=== PATIENT | female | born 1965 | race Caucasian/White ===

== ENCOUNTER 2017-06-14 19:37 | Emergency (ER) | payer OTHER ==
[2017-06-14 19:44] VITALS: BP 140/78; BMI 32.5
--- NOTE | 2017-06-14 20:41 | RAD ---
HISTORY: Flu Study: PA and lateral views of the chest. Comparison: None. Findings: The cardiomediastinal silhouette is normal. No focal consolidations, pleural effusions or pneumothora x. Osseous structures demonstrate no acute abnormality. IMPRESSION: 1. No acute cardiopulmonary process. Reported By:
--- NOTE | 2017-06-14 20:53 | DR.GENAD ---
HPI - PCP Primary Care Physician: NFD - Complaint/Symptoms Chief Complaint Doctors Comments: Patient has been treated and followed by her physician and has given her steroids and albuterol for her cough. She admits to one pack per day smoker. She denies fever, vomiting or diarrhea. She admits to getting the influenza shot Chief Complaint:: PT STATES" I HAD THE FLU I'VE TAKEN CIPRO MEDROL DOSE PACK AND AMOXILLICIN I DON'T FEEL ANY BETTER" - Source History Provided: Patient - Mode of Arrival Mode of Arrival: Ambulatory - Timing Onset of Chief Complaint: 05/17/17 PMH - PMH Past Medical History: Yes Past Medical History: Angina, Coronary Artery Disease, Depression, Dyslipidemia , GERD, Hypertension Past Surgical History: Yes Surgical History: Angioplasty/Stents, Bowel Resection, , Cholecystectomy, Hysterectomy, Ortho Surgery, Weight Loss Surgery - Family History History of Family Medical Conditions: Yes Family Medical History: Diabetes Mellitus, Cancer, Hypertension - Social History Does any household member use tobacco: Yes Alcohol Use: None Do you use any recreational Drugs:: No Lives With: Family Lives Where: Home - infectious screening In the last 2 months have you had wt loss of >10#?: NO Have you had fever, night sweats or hemotysis?: No Have you traveled outside the country in the last 6 months?: No Isolation: Standard ROS - Review of Systems Eyes: No Symptoms Reported ENTM: No Symptoms Reported Respiratoy: Non-Productive Cough Cardiovascular: No Symptoms Reported Gastrointestinal/Abdominal: No Symptoms Reported Genitourinary: No Symptoms Reported Neurological: No Symptoms Reported Musculoskeletal: No Symptoms Reported Integumentary: No Symptoms Reported Hematologic/Lymphatic: No Symptoms Reported Endocrine: No Symptoms Reported Psychiatric: No Symptoms Reported All Other Systems: Reviewed and Negative PE - Vital Signs Vitals: Temperature 97 F Pulse Rate 78 Respiratory Rate 18 Blood Pressure [Right Arm] 124/70 Blood Pressure 140/78 O2 Sat by Pulse Oximetry 100 - General Limitations: No Limitations General Appearance: Alert, In No Apparent Distress - Head Head Exam: Normal Inspection, Atraumatic - Eyes Eye exam: Normal Appearance, PERRL, EOMI - ENT ENT Exam: Normal Exam External Ear Exam: Normal External Inspection TM/Canal Exam: Bilateral Normal Nose Exam: Normal Nose Exam Mouth Exam: Normal Inspection Throat Exam: Normal Inspection - Neck Neck Exam: Normal Inspection, Full ROM - Chest Chest Inspection: Normal Inspection - Respiratory Respiratory Exam: Normal Lung Sounds Bilat Respiratory Exam: Bilateral Clear to Auscultation - Cardiovascular Cardiovascular Exam: Regular Rate, Normal Rhythm - Abdominal Exam Abdominal Exam: Normal Inspection, Normal Bowel Sounds Abdominal Tenderness: negative: RUQ, RLQ, LUQ, LLQ, Epigastrium, Suprapubic, Diffuse, Mild, Moderate, Severe, Other - Extremities Extremities Exam: Normal Inspection, Full ROM - Back Back Exam: Normal Inspection, Full ROM - Neurologic Neurological Exam: Alert, Oriented X3, CN II-XII Intact - Psychiatric Psychiatric Exam: Normal Affect, Normal Mood - Skin Skin Exam: Warm, Dry, Intact ROR - XRAY XRAY Interpreted by: Radiologist (Chest: no acute cardiopulmonary disease) - Diagnosis Discharge Problem: COPD (chronic obstructive pulmonary disease) Qualifiers: COPD type: chronic bronchitis Chronic bronchitis type: unspecified Qualified Code(s): J42 - Unspecified chronic bronchitis - Discharge Plan Condition: Stable - Follow ups/Referrals Follow ups/Referrals: NFD,None [Primary Care Provider] - 3 days - Instructions
== END 2017-06-14 21:03 | disposition home or self-care (01) ==
LOC: ER 19:37
DX: J42 Unspecified chronic bronchitis (principal)
CPT/HCPCS: 71046; 99282

== ENCOUNTER 2018-08-07 18:23 | Inpatient (IN) ==
--- NOTE | 2018-08-07 19:12 | DR.SOBA ---
HPI Time Seen Time Seen by Provider: 08/07/18 19:11 Primary Care Physician Primary Care Physician: danny HPI Comment HPI Comment: THIS 53YR OLD FEMALE WHO IS IN ED WITH SEVERE HEADACHE FOR ONE WEEK. GENERALIZE HEADACHE THAT IS THROBBING. PATIENT ALSO HAVE MUSCLE CRAMPS AND SOB. NO FEVER. MEDICATIONS TAKEN FOT HEADACHE IS NOT RELIEVING PAIN. DENIES NAUSEA OR VOMITING. HISTORY HYPERTENSION BUT BP NOT ELEVATED IN ED. Complaints Chief Complaint Doctors Comments: HEADACHE TIMES ONE WEEK AND SOB WITH MUSCLE CRAMPS. Chief Complaint:: pt states"I'VE HAD A HEADACHE SINCE THURSDAY I CAN'T BREATHE AND I HAVE MUSCLE CRAMPS ALL OVER MY BODY TO" Reviewed Nurses Notes Reviewed: Yes Source History Provided: Patient Mode of Arrival Mode of Arrival: Ambulatory Timing Onset of Chief Complaint: 08/01/18 Duration Duration: Days Context Onset:: At Rest PE Risk Factors:: None History of:: None Currently on:: Neither Prehospital Care:: None Modifying Factors Worsens:: Exertion Improves:: Sitting Up Associated Signs and Symptoms Associated Signs and Symptoms: None If Cough Cough: None PMH PMH Past Medical History: Yes Past Medical History: Headaches and Hypertension Past Surgical History: Yes Surgical History: Cholecystectomy, Hysterectomy and Ortho Surgery Past Surgical History Comment: BACK SURGERY Family History History of Family Medical Conditions: Yes Family Medical History: Hypertension Social History Does patient currently use any type of tobacco product: Yes Have you used tobacco products in the last 12 months: Yes Type of Tobacco Use: Cigarettes Does any household member use tobacco: Yes Alcohol Use: None Do you use any recreational Drugs:: No Lives With: Family Lives Where: Home infectious screening In the last 2 months have you had wt loss of >10#?: NO Have you had fever, night sweats or hemotysis?: No Have you traveled outside the country in the last 6 months?: No Isolation: Standard ROS Review of Systems Constitutional: Weakness and Fatigue; negative Fever Eyes: No Symptoms Reported ENTM: No Symptoms Reported Respiratoy: Short of Breath Cardiovascular: No Symptoms Reported Gastrointestinal/Abdominal: No Symptoms Reported Genitourinary: No Symptoms Reported Neurological: Headache Musculoskeletal: Muscle Pain Integumentary: No Symptoms Reported Hematologic/Lymphatic: No Symptoms Reported Endocrine: No Symptoms Reported Psychiatric: No Symptoms Reported All Other Systems: Reviewed and Negative PE Vital Signs Vitals: Temperature 97.9 F Pulse Rate [Left Brachial] 82 Pulse Rate 70 Respiratory Rate 20 Blood Pressure [Right Arm] 139/78 Blood Pressure 94/55 O2 Sat by Pulse Oximetry 96 General Limitations: No Limitations General Appearance: Alert Head Head Exam: Normal Inspection Eyes Eye exam: Normal Appearance, PERRL and EOMI; negative Scleral Icterus and Conjunctival Injection ENT ENT Exam: Normal External Ear Exam Neck Neck Exam: Normal Inspection and Trachea Midline Chest Chest Inspection: Normal Inspection and Symmetric Chest Wall Rise Respiratory Respiratory Exam: Normal Lung Sounds Bilat Respiratory Exam: Bilateral: Clear to Auscultation Cardiovascular Cardiovascular Exam: Regular Rate and Normal Rhythm Abdominal Exam Abdominal Exam: Normal Inspection, Normal Bowel Sounds and Soft; negative Tenderness Extremities Extremities Exam: Normal Inspection Back Back Exam: Normal Inspection Neurologic Neurological Exam: Alert, Oriented X3 and CN II-XII Intact; negative Motor Sensory Deficit Psychiatric Psychiatric Exam: Normal Affect and Normal Mood Skin Skin Exam: Warm, Dry, Intact and Normal Color MDM Differential Diagnosis Differential Diagnosis: Bronchitis, Hyponatremia, Pneumonia, Pneumothorax, Sinusitis, URI and Other (CVA, CEREBRAL MASS.) COURSE Treatment Treatment: SEE ORDERS. Education/Counseling Education/Counseling: Patient Educated On: Diagnosis and Needs for Follow Up ROR Labs Reviewed Laboratory Results Reviewed?: Yes Result Diagrams: 08/09/18 04:40 08/09/18 04:40 Laboratory: WBC 11.1 X10^3/uL (3.6-10.0) H 08/09/18 04:40 RBC 3.59 X10^6/uL (3.5-5.4) 08/09/18 04:40 Hgb 10.8 g/dL (12.0-16.0) L 08/09/18 04:40 Hct 31.3 % (36.0-47.0) L 08/09/18 04:40 MCV 87.0 fL (80.0-100.0) 08/09/18 04:40 MCH 30.1 pg (27.0-34.0) 08/09/18 04:40 MCHC 34.6 g/dL (33.0-35.0) 08/09/18 04:40 RDW 14.4 % (11.6-16.5) 08/09/18 04:40 Plt Count 300 X10^3/uL (150.0-450.0) 08/09/18 04:40 Plt Count Comment Adequate (ADEQUATE) 08/08/18 04:34 MPV 8.8 fL (7.4-11.0) 08/09/18 04:40 Neut % (Auto) 78.0 % (42.0-75.0) H 08/09/18 04:40 Lymph % (Auto) 15.5 % (21.0-51.0) L 08/09/18 04:40 [place] % (Auto) 4.8 % (0.0-13.0) 08/09/18 04:40 Eos % (Auto) 1.4 % (0.9-2.9) 08/09/18 04:40 Baso % (Auto) 0.3 % (0.2-1.0) 08/09/18 04:40 Neut # (Auto) 8.7 x10^3/uL (2.2-4.8) H 08/09/18 04:40 Lymph # (Auto) 1.7 X10^3/uL (1.3-2.9) 08/09/18 04:40 [place] # (Auto) 0.5 x10^3/uL (0.3-0.8) 08/09/18 04:40 Eos # (Auto) 0.2 x10^3/uL (0.0-0.2) 08/09/18 04:40 Baso # (Auto) 0.0 X10^3/uL (0.0-0.1) 08/09/18 04:40 Absolute Nucleated RBC 0.0 /100WBC 08/09/18 04:40 Total Counted 100 08/08/18 04:34 Neutrophils % (Manual) 98 % (39-76) H 08/08/18 04:34 Lymphocytes % (Manual) 1 % (13-43) L 08/08/18 04:34 Monocytes % (Manual) 1 % (4-9) L 08/08/18 04:34 Plt Morphology Comment Normal (NORMAL) 08/08/18 04:34 RBC Morphology Normal (NORMAL) 08/08/18 04:34 Sodium 137 mmol/L (136-145) 08/09/18 04:40 Corrected Sodium TNP 08/09/18 04:40 Potassium 4.0 mmol/L (3.5-5.1) 08/09/18 04:40 Chloride 103 mmol/L (98-107) 08/09/18 04:40 Carbon Dioxide 24.2 mmol/L (21-32) 08/09/18 04:40 BUN 12 mg/dL (7-18) 08/09/18 04:40 Creatinine 0.88 mg/dL (0.55-1.02) 08/09/18 04:40 Est GFR (MDRD) Af Amer > 60 (>60) 08/09/18 04:40 Est GFR (MDRD) Non-Af > 60 (>60) 08/09/18 04:40 Glucose 85 mg/dL (65-99) 08/09/18 04:40 Calcium 8.5 mg/dL (8.5-10.1) 08/09/18 04:40 Corrected Calcium 9.5 mg/dL (8.5-10.1) 08/09/18 04:40 Magnesium 1.8 mg/dL (1.7-2.9) 08/08/18 04:34 Total Bilirubin 0.20 mg/dL (0.2-1.0) 08/09/18 04:40 AST 23 Units/L (15-37) 08/09/18 04:40 ALT 23 Units/L (12-78) 08/09/18 04:40 Alkaline Phosphatase 82 Units/L (46-116) 08/09/18 04:40 Total Protein 6.0 g/dL (6.4-8.2) L 08/09/18 04:40 Albumin 2.8 g/dL (3.4-5.0) L 08/09/18 04:40 Globulin 3.2 g/dL (2.5-4.5) 08/09/18 04:40 Albumin/Globulin Ratio 0.9 Ratio (1.1-2.1) L 08/09/18 04:40 Specimen Type Clean catch urine 08/07/18 23:48 Urine Color Yellow (YELLOW) 08/07/18 23:48 Urine Appearance Clear (CLEAR) 08/07/18 23:48 Urine pH 6.0 (5.0 - 8.0) 08/07/18 23:48 Ur Specific [place] 1.005 (1.000-1.030) 08/07/18 23:48 Urine Protein Negative (NEGATIVE) 08/07/18 23:48 Urine Glucose (UA) Negative (NEGATIVE) 08/07/18 23:48 Urine Ketones Negative (NEGATIVE) 08/07/18 23:48 Urine Occult Blood 3+ (NEGATIVE) 08/07/18 23:48 Urine Nitrite Negative (NEGATIVE) 08/07/18 23:48 Urine Bilirubin Negative (NEGATIVE) 08/07/18 23:48 Urine Urobilinogen Normal (NORMAL) 08/07/18 23:48 Ur Leukocyte Esterase Negative (NEGATIVE) 08/07/18 23:48 Urine RBC 0-2 /HPF (NONE SEEN) 08/07/18 23:48 Urine WBC None seen /HPF (NONE SEEN) 08/07/18 23:48 Ur Squamous Epith Cells Rare /HPF (NEGATIVE) 08/07/18 23:48 Urine Bacteria Negative /HPF (NEGATIVE) 08/07/18 23:48 Ur Culture Indicated? No/not indicated 08/07/18 23:48 XRAY XRAY Interpreted by: Radiologist XRAY Findings: REPORT ON RECORD NOTED AND DISCUSS WITH PATIENT. Diagnosis Discharge Problem: Acute hyponatremia Instructions Instructions: Steps to Quit Smoking, [id number] Fall Prevention in the Home, Adult, [id number] Chronic Obstructive Pulmonary Disease Hyponatremia, [id number] Hypertension, [id number] Forms: Patient Portal
[2018-08-07] MEDS ORDERED: BENADRYL INJ 50 MG VIAL IVP ONE (19:20)
[2018-08-07] MEDS ORDERED: COMPAZINE INJ IVP ONE (19:20)
[2018-08-07] MEDS ORDERED: DECADRON INJ IM ONE (19:20)
[2018-08-07] MEDS ORDERED: DECADRON INJ ONE (19:27)
[2018-08-07] MEDS ORDERED: COMPAZINE INJ ONE (19:27)
[2018-08-07] MEDS ORDERED: BENADRYL INJ 50 MG VIAL ONE (19:27)
[2018-08-07 19:36] LABS: BASOPHILS % (AUTO) 0.2 % (0.2-1.0); EOSINOPHILS # (AUTO) 0.1 x10^3/uL (0.0-0.2); EOSINOPHILS % (AUTO) 0.3 % (0.9-2.9); HEMATOCRIT 34.4 % (36.0-47.0); HEMOGLOBIN 12.2 g/dL (12.0-16.0); LYMPHOCYTES # (AUTO) 1.4 X10^3/uL (1.3-2.9); LYMPHOCYTES % (AUTO) 7.5 % (21.0-51.0); MEAN CORPUSCULAR HEMOGLOBIN 30.1 pg (27.0-34.0); MEAN CORPUSCULAR HGB CONC 35.4 g/dL (33.0-35.0); MEAN CORPUSCULAR VOLUME 85.1 fL (80.0-100.0); MEAN PLATELET VOLUME 8.4 fL (7.4-11.0); MONOCYTES # (AUTO) 0.7 x10^3/uL (0.3-0.8); MONOCYTES % (AUTO) 3.8 % (0.0-13.0); NEUTROPHILS # (AUTO) 16.6 x10^3/uL (2.2-4.8); NEUTROPHILS % (AUTO) 88.2 % (42.0-75.0); PLATELET COUNT 285 X10^3/uL (150.0-450.0); RED BLOOD COUNT 4.05 X10^6/uL (3.5-5.4); RED CELL DISTRIBUTION WIDTH 13.9 % (11.6-16.5); WHITE BLOOD COUNT 18.8 X10^3/uL (3.6-10.0)
[2018-08-07] MEDS ORDERED: DECADRON INJ IV ONE (19:39)
[2018-08-07 19:57] LABS: ALBUMIN 3.2 g/dL (3.4-5.0); CALCIUM 8.4 mg/dL (8.5-10.1); CARBON DIOXIDE 20.7 mmol/L (21-32); CREATININE 1.34 mg/dL (0.55-1.02); TOTAL PROTEIN 6.7 g/dL (6.4-8.2)
[2018-08-07] MEDS ORDERED: NS 1000 ML 1,000 ML IV ONE (20:04)
[2018-08-07] MEDS ORDERED: NS 1000 ML 1,000 ML ONE (20:05)
--- NOTE | 2018-08-07 21:27 | CT ---
HISTORY: Headache for 1 week Study: CT brain without contrast Comparison: None Technique: Multiple axial images of the brain were obtained from the skull base to the vertex without administration of IV contrast. Findings: No acute intraparenchymal hemorrhage or mass can be identified. No extra-axial fluid collections are seen. No alteration in the attenuation of the brain parenchyma can be identified to suggest acute or subacute ischemic change. The ventricular system is nondilated. The extracranial structures are grossly unremarkable. IMPRESSION: 1. No acute intracranial process can be identified. Reported By:
--- NOTE | 2018-08-07 22:09 | RAD ---
HISTORY: Headache for 1 week with shortness of breath Study: Single-view chest Comparison: 06/14/2017 Findings: The trachea is midline. The cardiac silhouette is unremarkable. The lungs are clear without focal infiltrate or effusion. The bony thorax is unremarkable. IMPRESSION: 1. No acute cardiopulmonary disease. Reported By:
[2018-08-07] MEDS: NS 1000 ML 1,000 ML IV SCH (22:12)
[2018-08-07] MEDS: NORCO 5/325 MG TAB PO PRN (23:39)
[2018-08-07 23:54] LABS: BILIRUBIN,URINE NEGATIVE (NEGATIVE); BLOOD/HEMOGLOBIN,URINE 3+ (NEGATIVE); GLUCOSE, URINE NEGATIVE (NEGATIVE); KETONES,URINE NEGATIVE (NEGATIVE); LEUKOCYTE ESTERASE ,URINE NEGATIVE (NEGATIVE); NITRITES,URINE NEGATIVE (NEGATIVE); PROTEIN,URINE NEGATIVE (NEGATIVE); UROBILINOGEN,URINE NORMAL (NORMAL)
[2018-08-07 23:57] LABS: APPEARANCE,URINE CLEAR (CLEAR); BACTERIA,URINE NEGATIVE /HPF (NEGATIVE); COLOR,URINE YELLOW (YELLOW); RBC,URINE 0-2 /HPF (NONE SEEN); SQUAMOUS EPITHELIAL CELL,UR RARE /HPF (NEGATIVE)
[2018-08-08] MEDS ORDERED: K-RIDER 10 MEQ/NS 100 ML 10 MEQ/100 ML BAG IV PRN (01:33)
[2018-08-08] MEDS ORDERED: POTASSIUM CHL 40 MEQ/NS 0.45% 500 ML IV PRN (01:33)
[2018-08-08] MEDS ORDERED: KLOR-CON PO PRN (01:33)
[2018-08-08] MEDS ORDERED: MICRO K EXTEN CAP 10 MEQ PO PRN (01:33)
[2018-08-08] MEDS ORDERED: POTASSIUM CHLORIDE LIQ 20 MEQ UDC PO PRN (01:33)
[2018-08-08] MEDS ORDERED: POTASSIUM CHL 60 MEQ/NS 0.45% 500 ML IV PRN (01:33)
[2018-08-08] MEDS ORDERED: K-DUR TAB 20 MEQ PO PRN (01:33)
[2018-08-08] MEDS ORDERED: KLOR-CON PO ONE (01:35)
[2018-08-08 05:35] LABS: BASOPHILS % (AUTO) 0.1 % (0.2-1.0); HEMATOCRIT 34.7 % (36.0-47.0); LYMPHOCYTES # (AUTO) 0.6 X10^3/uL (1.3-2.9); LYMPHOCYTES % (AUTO) 3.9 % (21.0-51.0); MEAN CORPUSCULAR HEMOGLOBIN 29.5 pg (27.0-34.0); MEAN CORPUSCULAR HGB CONC 34.6 g/dL (33.0-35.0); MEAN CORPUSCULAR VOLUME 85.3 fL (80.0-100.0); MEAN PLATELET VOLUME 8.8 fL (7.4-11.0); MONOCYTES # (AUTO) 0.3 x10^3/uL (0.3-0.8); MONOCYTES % (AUTO) 2.2 % (0.0-13.0); NEUTROPHILS # (AUTO) 14.2 x10^3/uL (2.2-4.8); NEUTROPHILS % (AUTO) 93.8 % (42.0-75.0); PLATELET COUNT 296 X10^3/uL (150.0-450.0); RED BLOOD COUNT 4.07 X10^6/uL (3.5-5.4); RED CELL DISTRIBUTION WIDTH 14.2 % (11.6-16.5); WHITE BLOOD COUNT 15.1 X10^3/uL (3.6-10.0)
[2018-08-08 05:57] LABS: ALANINE AMINOTRANSFERASE 29 Units/L (12-78); ALBUMIN 3.1 g/dL (3.4-5.0); ALKALINE PHOSPHATASE 96 Units/L (46-116); ASPARTATE AMINO TRANSFERASE 32 Units/L (15-37); BLOOD UREA NITROGEN 13 mg/dL (7-18); CALCIUM 8.7 mg/dL (8.5-10.1); CARBON DIOXIDE 24.5 mmol/L (21-32); CHLORIDE 91 mmol/L (98-107); COR CA(FOR HYPOALB) 9.4 mg/dL (8.5-10.1); CREATININE 1.03 mg/dL (0.55-1.02); MAGNESIUM 1.8 mg/dL (1.7-2.9); TOTAL PROTEIN 6.6 g/dL (6.4-8.2); eGFR NON BLACK RACES 59 (>60)
[2018-08-08 06:18] LABS: COR NA(FOR HYPERGLY) 127 mmol/L (136-145); SODIUM 126 mmol/L (136-145)
[2018-08-08 06:25] LABS: PLATELET MORPHOLOGY COMMENT NORMAL (NORMAL)
[2018-08-08] MEDS: NS 1000 ML 1,000 ML IV SCH ×3 (07:34→14:58)
[2018-08-08] MEDS: NORCO 5/325 MG TAB PO PRN ×2 (07:42→20:43)
[2018-08-08] MEDS: PULMICORT NEB TX 0.5 MG NEB SCH ×2 (08:17→20:51)
[2018-08-08] MEDS ORDERED: PROVENTIL NEB TX 0.083% 2.5MG/ 3ML NEB SCH (09:00)
[2018-08-08] MEDS ORDERED: PATIENT'S HOME MEDICATION (Diclofenac Sodium [Diclofenac Sodium] 75 MG) PO PRN (17:47)
[2018-08-08] MEDS ORDERED: ZOFRAN TAB 4 MG PO PRN ×2 (17:47→17:59)
[2018-08-08] MEDS ORDERED: VITAMIN D (1.25MG) PO SCH (18:00)
--- NOTE | 2018-08-08 18:13 | DR.H&P ---
H&P - History & Physical for Day of: H&P Date: 08/07/18 - Chief Complaint Chief Complaint: HEADACHE, SOB, MUSCLE CRAMPS - History of Present Illness History of Present Illness: IS A 53 YEAR OLD WHITE FEMALE WHO PRESENTED TO THE ER WITH COMPLAINTS OF HEADACHE, SHORTNESS OF BREATH, AND MUSCLE CRAMPS FOR THE PAST WEEK. ON ARRIVAL, VITALS WERE 98.2-77-20-96%-94/55. LABS WERE OBTAINED. ABNORMAL LAB VALUES INCLUDE THE FOLLOWING: WBC 18.8, HCT 34.4, SODIUM 119, POTASSIUM 3.2, CHLORIDE 83, CARBON DIOXIDE 20.7, CREATININE 1.34, GLUCOSE 117, CALCIUM 8.4, ALBUMIN 3.2. A BRAIN CT WAS OBTAINED AND REVEALED: NO ACUTE INTRACRANIAL PROCESS IDENTIFIED. CHEST XRAY OBTAINED AND REVEALED: NO ACUTE CARDIOPULMONARY DISEASE. EKG REVEALED: SINUS RHYTHM WITH HR 68. SHE WAS GIVEN A NORMAL SALINE BOLUSE, DECADRON 4MG IV X 1, COMPAZINE 10MG IV X 1, AND BENADRYL 50MG IV X 1. SHE WAS ADMITTED FOR FURTHER EVALUATION AND TREATMENT OF HYPONATREMIA AND HYPOKALEMIA. SHE WAS STARTED ON NORMAL SALINE AT 125ML/HR AND THE POTASSIUM PROTOCOL. WE PLAN TO FOLLOW UP WITH AM LABS AND CONTINUE TO MONITOR. - Past Medical History Past Medical History: Hypertension, Headaches - Past Surgical History Surgical History: Cholecystectomy, Hysterectomy, Ortho Surgery, Other - Family History Family Medical History: Cancer, [place], Coronary Artery Disease, Hypertension - Social History Does patient currently use any type of tobacco product: Yes Have you used tobacco products in the last 12 months: Yes Type of Tobacco Use: Cigarettes Does any household member use tobacco: Yes Alcohol Use: None Drug Use: None - Medications Home Medications: No Known Drug Allergies Allergy (Verified 10/19/17 12:18) CONTINUE taking the following medications fluticasone furoate-vilanterol [Breo Ellipta] 1 dose INHALATION BID 08/07/18 [History] trazodone 50 mg PO DAILY 08/07/18 [History] - Review of Systems Constitutional: See HPI, Weakness, Malaise Eyes: No Symptoms Reported ENT: No Symptoms Reported Respiratory: See HPI, Shortness of Breath, SOB with Excertion Cardiovascular: No Symptoms Reported Gastrointestinal: No Symptoms Reported Genitourinary: No Symptoms Reported Musculoskeletal: See HPI, Other (GENERALIZED MUSCLE CRAMPS ) Skin: No Symptoms Reported Neurological: Weakness - Physical Exam Vital Signs: Temperature 98.1 F Pulse Rate [Left Brachial] 76 Pulse Rate 76 Respiratory Rate 20 Blood Pressure [Right Arm] 101/54 Blood Pressure 94/55 O2 Sat by Pulse Oximetry 96 Oriented: Normal Eyes: Normal Ear: Normal Nose: Normal Throat: Normal Respiratory: Diminished Throughout Cardiovascular: Normal, Murmur. negative: S3, S4 : Normal Auscultation: Bowel Sounds: Normal Palpation: Normal Tenderness: Normal Skin: Normal Musculoskeletal: Normal Psychiatric: Normal Mood Description: Calm Affect: Normal Speech Pattern: Clear - Assessment/Plan (1) Acute hyponatremia Status: Acute Plan: NORMAL SALINE AT 125ML/HR, CONTINUE TO MONITOR (2) Hypokalemia Status: Acute Plan: POTASSIUM PROTOCOL, CONTINUE TO MONITOR - Allergies Allergies/Adverse Reactions: Allergies Allergy/AdvReac Type Severity Reaction Status Date / Time No Known Drug Allergies Allergy Verified 10/19/17 12:18
[2018-08-08] MEDS: NEURONTIN CAP 300 MG PO SCH (20:42)
[2018-08-08] MEDS: BUSPAR PO SCH (20:44)
[2018-08-08] MEDS: DUONEB 0.5 MG/3 MG NEB SCH (20:51)
[2018-08-08] MEDS ORDERED: PATIENT'S HOME MEDICATION (Meloxicam [Meloxicam] 7.5 MG) PO SCH (21:00)
[2018-08-08] MEDS ORDERED: IPRATROPIUM ALBUTEROL IN SCH (21:00)
[2018-08-08] MEDS ORDERED: AMBIEN PO SCH (21:00)
[2018-08-08] MEDS ORDERED: COLACE SYRUP 100 MG UDC PO PRN (21:37)
[2018-08-09] MEDS: NS 1000 ML 1,000 ML IV SCH ×2 (02:00→04:41)
[2018-08-09 05:27] VITALS: BMI 35.2
[2018-08-09 06:04] LABS: BASOPHILS % (AUTO) 0.3 % (0.2-1.0); EOSINOPHILS # (AUTO) 0.2 x10^3/uL (0.0-0.2); EOSINOPHILS % (AUTO) 1.4 % (0.9-2.9); HEMATOCRIT 31.3 % (36.0-47.0); HEMOGLOBIN 10.8 g/dL (12.0-16.0); LYMPHOCYTES # (AUTO) 1.7 X10^3/uL (1.3-2.9); LYMPHOCYTES % (AUTO) 15.5 % (21.0-51.0); MEAN CORPUSCULAR HEMOGLOBIN 30.1 pg (27.0-34.0); MEAN CORPUSCULAR HGB CONC 34.6 g/dL (33.0-35.0); MEAN PLATELET VOLUME 8.8 fL (7.4-11.0); MONOCYTES # (AUTO) 0.5 x10^3/uL (0.3-0.8); MONOCYTES % (AUTO) 4.8 % (0.0-13.0); NEUTROPHILS # (AUTO) 8.7 x10^3/uL (2.2-4.8); PLATELET COUNT 300 X10^3/uL (150.0-450.0); RED BLOOD COUNT 3.59 X10^6/uL (3.5-5.4); RED CELL DISTRIBUTION WIDTH 14.4 % (11.6-16.5); WHITE BLOOD COUNT 11.1 X10^3/uL (3.6-10.0)
[2018-08-09 06:14] LABS: ALANINE AMINOTRANSFERASE 23 Units/L (12-78); ALBUMIN 2.8 g/dL (3.4-5.0); ALKALINE PHOSPHATASE 82 Units/L (46-116); ASPARTATE AMINO TRANSFERASE 23 Units/L (15-37); BLOOD UREA NITROGEN 12 mg/dL (7-18); CALCIUM 8.5 mg/dL (8.5-10.1); CARBON DIOXIDE 24.2 mmol/L (21-32); CHLORIDE 103 mmol/L (98-107); COR CA(FOR HYPOALB) 9.5 mg/dL (8.5-10.1); CREATININE 0.88 mg/dL (0.55-1.02); SODIUM 137 mmol/L (136-145); eGFR NON BLACK RACES > 60 (>60)
[2018-08-09] MEDS: NORCO 5/325 MG TAB PO PRN (07:44)
[2018-08-09] MEDS: PULMICORT NEB TX 0.5 MG NEB SCH (08:22)
[2018-08-09] MEDS: DUONEB 0.5 MG/3 MG NEB SCH (08:22)
[2018-08-09] MEDS ORDERED: DESYREL PO SCH (09:00)
[2018-08-09] MEDS ORDERED: CLARITIN PO SCH (09:00)
[2018-08-09] MEDS ORDERED: PriLOSEC PO SCH (09:00)
[2018-08-09] MEDS ORDERED: ATIVAN TAB 0.5 MG PO SCH (09:00)
[2018-08-09] MEDS: NEURONTIN CAP 300 MG PO SCH (09:26)
[2018-08-09] MEDS: BUSPAR PO SCH (09:26)
[2018-08-09 12:36] VITALS: BP 139/78
== END 2018-08-09 12:45 | disposition home or self-care (01) | DRG 641 ==
LOC: ER 18:24 → MED/SURG 21:54
PROVIDERS: ADMIT Internal Medicine; ATTEND Internal Medicine
DX: R94.31 Abnormal electrocardiogram [ECG] [EKG]; E87.1 Hypo-osmolality and hyponatremia; E87.6 Hypokalemia; R51 Headache; R25.2 Cramp and spasm; I10 Essential (primary) hypertension; R06.02 Shortness of breath
CPT/HCPCS: 36415; 70450; 71010; 71045; 80053; 81001; 83735; 85025; 93005; 94640; 94760; 96365; 96367; 96374; 96375; 99284; A4222; J0780; J1100; J1200; J7030; J7613; J7620; J7626